=== PATIENT | female | born 1955 | race Caucasian/White ===

== ENCOUNTER 2019-06-28 13:30 | Inpatient (IN) ==
[2019-06-28 14:23] LABS: Basophils % 0.1 % (0.0-0.8); Eosinophils % 0.1 % (0.00-10.9); Hematocrit 33.6 VOL% (35.7-47.0); Hemoglobin 10.9 GM/DL (12.0-16.0); Immature Granulocytes % 0.3 %; Immature Granulocytes Absolute 0.02 #; Lymphocytes # 1.1 10*3/uL (1.4-4.0); Lymphocytes % 15.6 % (21.3-54.2); Mean Corpuscular HGB Conc 32.4 GM/DL (32-36); Mean Corpuscular Volume 92.8 FL (87-102); Mean Platelet Volume 9.6 FL (9.6-12.0); Monocytes % 3.8 % (1.7-12.7); Neutrophils % 80.1 % (38.7-73.9); Platelet Count 282 T/CUMM (130-400); Red Blood Count 3.62 MC/CUMM (3.8-5.5); Red Cell Distribution Width 13.9 % (9.3-17.3); White Blood Count 7.1 T/CUMM (4-12)
[2019-06-28 14:33] LABS: INR 0.9; PT Patient Result 10.2 SECS (9.6-12.2); Partial Thromboplastin Time < 21.0 SECS (20.8-36.0)
[2019-06-28 14:37] LABS: Alanine Aminotransferase 26 U/L (13-56); Albumin 3.4 G/DL (3.4-5.0); Alkaline Phosphatase 56 U/L (45-117); Aspartate Amino Transferase 31 U/L (0-37); Bilirubin,Total < 0.39 MG/DL (0.2-1.0); Blood Urea Nitrogen 7 MG/DL (7-18); Calcium 8.2 MG/DL (8.5-10.1); Estimated Glom Filtration Rate 107 ML/MIN; Glucose 105 MG/DL (74-106); Osmolality,Calculated 276.4 MOS/KG (273-304); Total Protein 6.9 G/DL (6.4-8.3)
[2019-06-28] MEDS ORDERED: LABETALOL 20 MG/4 ML SYRINGE IV PRN (15:18)
[2019-06-28] MEDS ORDERED: ASPIRIN 300 MG SUPP RECTAL STA (15:18)
[2019-06-28 15:55] LABS: Apearance,Urine CLEAR (Clear); Bilirubin,Urine Negative (Negative); Blood, Urine Negative (Negative); Glucose,Urine (UA) Negative (Negative); Ketones,Urine Negative (Negative); Mucus,Urine Occasional /LPF (Occasional); Nitrite,Urine Negative (Negative); Protein,Urine Negative; RBC,Urine <1 /HPF (0-4); Squamous Epithelial Cell,Urine Occasional /HPF (0-10); Transitional Epi Cells,Urine Occasional /HPF (<1); Urine Color Yellow (Yellow); Urine Specific Gravity 1.015 (1.001-1.035); Urine Urobilinogen < 2.0 EU/DL (0.2-1.0); WBC,Urine 1 /HPF (0-6)
[2019-06-28 16:09] LABS: Risk Ratio 4.47; Thyroid Stimulating Hormone 1.24 uIU/ml (0.358-3.74); VLDL CHOLESTEROL 14.8 MG/DL
[2019-06-28 17:10] LABS: Barbiturates Screen,Urine Negative (Negative); Benzodiazepines Screen,Urine Positive (Negative); Cannabinoid Screen,Urine Negative (Negative); Opiate Screen,Urine Negative (Negative); Phencyclidine Screen,Urine Negative (Negative)
[2019-06-28] MEDS: SODIUM CHLORIDE 0.9% 1,000 ML IV SCH (20:18)
[2019-06-28] MEDS: ENOXAPARIN 40 MG/0.4 ML SYRINGE SUBCUT SCH (20:46)
[2019-06-28] MEDS: ATORVASTATIN 40 MG TABLET PO SCH (20:50)
[2019-06-29] MEDS: ASPIRIN 325 MG TABLET PO SCH (09:38)
[2019-06-29] MEDS ORDERED: ACETAMINOPHEN 650 MG SUPP RECTAL PRN (11:05)
[2019-06-29] MEDS ORDERED: ACETAMINOPHEN 325 MG TABLET ONE (12:07)
[2019-06-29] MEDS: ACETAMINOPHEN 325 MG TABLET PO PRN ×2 (12:13→18:40)
[2019-06-29] MEDS: SODIUM CHLORIDE 0.9% 1,000 ML IV SCH ×2 (12:14→23:47)
[2019-06-29] MEDS: ATORVASTATIN 40 MG TABLET PO SCH (20:24)
[2019-06-29] MEDS: ENOXAPARIN 40 MG/0.4 ML SYRINGE SUBCUT SCH (20:24)
[2019-06-30] MEDS: ASPIRIN 325 MG TABLET PO SCH (09:08)
[2019-06-30] MEDS ORDERED: DIAZEPAM 5 MG TABLET PO PRN (12:00)
[2019-06-30] MEDS: METOPROLOL TARTRATE 25 MG TABLET PO SCH (12:16)
[2019-06-30] MEDS: SODIUM CHLORIDE 0.9% 1,000 ML IV SCH (13:08)
[2019-06-30] MEDS: ATORVASTATIN 40 MG TABLET PO SCH (21:14)
[2019-06-30] MEDS: ENOXAPARIN 40 MG/0.4 ML SYRINGE SUBCUT SCH (21:14)
[2019-07-01] MEDS: ASPIRIN 325 MG TABLET PO SCH (08:48)
[2019-07-01] MEDS: ESCITALOPRAM 10 MG TABLET PO SCH (08:48)
[2019-07-01] MEDS: PANTOPRAZOLE 40 MG TABLET PO SCH (08:49)
[2019-07-01] MEDS: METOPROLOL TARTRATE 25 MG TABLET PO SCH (08:49)
[2019-07-01] MEDS ORDERED: MAGNESIUM HYDROXIDE SUSP 30 ML UDCUP PO PRN (09:04)
[2019-07-01] MEDS: amLODIPine 5 MG TABLET PO SCH (14:07)
[2019-07-01] MEDS: ATORVASTATIN 40 MG TABLET PO SCH (21:26)
[2019-07-01] MEDS: ENOXAPARIN 40 MG/0.4 ML SYRINGE SUBCUT SCH (21:26)
[2019-07-01] MEDS: DOCUSATE SODIUM 100 MG CAPSULE PO SCH (21:26)
[2019-07-02] MEDS: PANTOPRAZOLE 40 MG TABLET PO SCH (08:48)
[2019-07-02] MEDS: ESCITALOPRAM 10 MG TABLET PO SCH (08:48)
[2019-07-02] MEDS: ASPIRIN 325 MG TABLET PO SCH (08:48)
[2019-07-02] MEDS: METOPROLOL TARTRATE 25 MG TABLET PO SCH (08:48)
[2019-07-02] MEDS: amLODIPine 5 MG TABLET PO SCH (08:48)
[2019-07-02] MEDS: DOCUSATE SODIUM 100 MG CAPSULE PO SCH (08:48)
[2019-07-02 12:06] VITALS: BP 149/88
== END 2019-07-02 11:50 | DRG 65 ==
LOC: EDUNIT# → EDBD → N.ED 13:30 → N.EDINP 15:14 → SUATTDRO 15:14 → N.EDINP 16:58 → N.4E 17:22
PROVIDERS: ADMIT Internal Medicine; ATTEND Internal Medicine Geriatric Medicine

== ENCOUNTER 2021-02-21 11:18 | Observation (INO) ==
[2021-02-21 12:32] LABS: Basophils % 0.3 % (0.0-0.8); Eosinophils # 0.2 10*3/uL (0.0-0.87); Eosinophils % 3.2 % (0.00-10.9); Hematocrit 22.4 VOL% (35.7-47.0); Hemoglobin 6.5 GM/DL (12.0-16.0); Immature Granulocytes % 0.3 %; Immature Granulocytes Absolute 0.02 #; Lymphocytes # 2.2 10*3/uL (1.4-4.0); Lymphocytes % 33.6 % (21.3-54.2); Mean Corpuscular Volume 76.5 FL (87-102); Mean Platelet Volume 10.5 FL (9.6-12.0); Monocytes % 7.8 % (1.7-12.7); NRBC # 0.02 10*3/uL; Neutrophils % 54.8 % (38.7-73.9); Platelet Count 279 T/CUMM (130-400); Red Blood Count 2.93 MC/CUMM (3.8-5.5); White Blood Count 6.6 T/CUMM (4-12)
[2021-02-21 12:39] LABS: Partial Thromboplastin Time 21.7 SECS (23.9-33.8)
[2021-02-21 12:53] LABS: Alanine Aminotransferase 15 U/L (13-56); Albumin 3.5 G/DL (3.4-5.0); Alkaline Phosphatase 63 U/L (45-117); Aspartate Amino Transferase 17 U/L (0-37); Blood Urea Nitrogen 10 MG/DL (7-18); Calcium 8.2 MG/DL (8.5-10.1); Carbon Dioxide 24 MMOL/L (21-32); Estimated Glom Filtration Rate 76 ML/MIN; Glucose 93 MG/DL (74-106); Osmolality,Calculated 281.1 MOS/KG (273-304); Potassium 4.2 MMOL/L (3.5-5.1); Sodium 142 MMOL/L (136-145); Total Protein 7.1 G/DL (6.4-8.2)
[2021-02-21] MEDS ORDERED: ONDANSETRON 4 MG/2 ML VIAL IV PRN (12:56)
[2021-02-21 12:59] LABS: Hypochromasia 3+; Microcytosis 2+; Ovalocytes Few; Platelet Estimate Normal; Polychromasia Slight; Stomatocytes Few
[2021-02-21] MEDS ORDERED: ENOXAPARIN 40 MG/0.4 ML SYRINGE SUBCUT SCH (13:00)
[2021-02-21 13:06] LABS: Folate > 24.00 NG/ML (5.38-24.0); Vitamin B12 653 PG/ML (211-911)
[2021-02-21 13:16] LABS: % Iron Saturation 3.5 % (18-50); Ferritin 8.7 ng/ml (8-252)
[2021-02-21] MEDS: PANTOPRAZOLE 40 MG TABLET PO SCH (14:27)
[2021-02-21] MEDS ORDERED: SODIUM CHLORIDE 0.9% 1,000 ML IV PRN (14:38)
[2021-02-21] MEDS ORDERED: ACETAMINOPHEN 500 MG TABLET PO PRN (14:39)
[2021-02-21] MEDS ORDERED: amLODIPine 5 MG TABLET PO SCH (15:00)
[2021-02-21] MEDS ORDERED: DIAZEPAM 5 MG TABLET PO STA (15:32)
[2021-02-21 16:21] LABS: Barbiturates Screen,Urine Negative (Negative); Benzodiazepines Screen,Urine Negative (Negative); Cannabinoid Screen,Urine Negative (Negative); Opiate Screen,Urine Negative (Negative); Phencyclidine Screen,Urine Negative (Negative)
[2021-02-21 21:04] LABS: Bilirubin,Urine Negative (Negative); Blood, Urine Negative (Negative); Glucose,Urine (UA) Negative (Negative); Hyaline Casts,Urine 4 /LPF (0-3); Ketones,Urine Negative (Negative); Mucus,Urine Many /LPF (Occasional); Nitrite,Urine Negative (Negative); Protein,Urine Negative; RBC,Urine 1 /HPF (0-4); Squamous Epithelial Cell,Urine Occasional /HPF (0-10); Urine Appearance CLEAR (Clear); Urine Color Yellow (Yellow); Urine Specific Gravity 1.021 (1.001-1.035); Urine Urobilinogen < 2.0 EU/DL (0.2-1.0)
[2021-02-22 04:30] LABS: Basophils % 0.4 % (0.0-0.8); Eosinophils # 0.2 10*3/uL (0.0-0.87); Eosinophils % 4.2 % (0.00-10.9); Hematocrit 24.4 VOL% (35.7-47.0); Immature Granulocytes % 0.6 %; Immature Granulocytes Absolute 0.03 #; Lymphocytes # 2.3 10*3/uL (1.4-4.0); Lymphocytes % 43.5 % (21.3-54.2); Mean Corpuscular HGB Conc 28.7 GM/DL (32-36); Mean Platelet Volume 10.3 FL (9.6-12.0); Monocytes % 8.2 % (1.7-12.7); NRBC # 0.02 10*3/uL; Neutrophils % 43.1 % (38.7-73.9); Platelet Count 238 T/CUMM (130-400); Red Blood Count 3.09 MC/CUMM (3.8-5.5); Red Cell Distribution Width 17.8 % (9.3-17.3); White Blood Count 5.2 T/CUMM (4-12)
[2021-02-22 04:57] LABS: Hypochromasia 2+; Microcytosis 1+
[2021-02-22 04:58] LABS: Ovalocytes Slight; Platelet Estimate Adequate
[2021-02-22 05:14] LABS: Bilirubin,Total 0.6 MG/DL (0.20-1.00); Calcium 7.7 MG/DL (8.5-10.1); Potassium 3.9 MMOL/L (3.5-5.1); Total Protein 6.3 G/DL (6.4-8.2)
[2021-02-22] MEDS ORDERED: LACTATED RINGERS 1,000 ML IV SCH (08:00)
[2021-02-22] MEDS ORDERED: ASPIRIN 325 MG TABLET PO SCH (09:00)
[2021-02-22 09:24] LABS: Hematocrit 26.9 VOL% (35.7-47.0)
[2021-02-22] MEDS ORDERED: propofoL 200 MG/20 ML VIAL IV ONE (11:40)
[2021-02-22] MEDS ORDERED: LIDOCAINE 2% 5 ML VIAL ONE (11:40)
[2021-02-22] MEDS: SOFOSBUVIR VELPATASVIR PO SCH (13:26)
[2021-02-22] MEDS: METOPROLOL TARTRATE 25 MG TABLET PO SCH (13:26)
[2021-02-22] MEDS: PANTOPRAZOLE 40 MG TABLET PO SCH (13:26)
[2021-02-22 18:17] LABS: Hematocrit 27.8 VOL% (35.7-47.0); Hemoglobin 8.1 GM/DL (12.0-16.0)
[2021-02-23 06:51] LABS: Calcium 8.3 MG/DL (8.5-10.1); Osmolality,Calculated 279.3 MOS/KG (273-304); Potassium 3.7 MMOL/L (3.5-5.1)
[2021-02-23 07:04] LABS: Basophils % 0.2 % (0.0-0.8); Eosinophils # 0.2 10*3/uL (0.0-0.87); Hemoglobin 8.5 GM/DL (12.0-16.0); Immature Granulocytes % 0.7 %; Immature Granulocytes Absolute 0.04 #; Lymphocytes # 1.5 10*3/uL (1.4-4.0); Mean Corpuscular HGB Conc 30.4 GM/DL (32-36); Mean Corpuscular Volume 77.3 FL (87-102); Mean Platelet Volume 9.8 FL (9.6-12.0); Monocytes % 8.1 % (1.7-12.7); NRBC # 0.02 10*3/uL; Platelet Count 253 T/CUMM (130-400); Red Blood Count 3.62 MC/CUMM (3.8-5.5); Red Cell Distribution Width 17.4 % (9.3-17.3); White Blood Count 5.9 T/CUMM (4-12)
[2021-02-23 08:48] VITALS: BP 112/56
[2021-02-23] MEDS ORDERED: FERROUS SULFATE 325 MG TABLET PO SCH (09:00)
[2021-02-23] MEDS ORDERED: ASPIRIN 325 MG TABLET PO SCH (09:00)
[2021-02-23] MEDS: METOPROLOL TARTRATE 25 MG TABLET PO SCH (09:22)
[2021-02-23] MEDS: PANTOPRAZOLE 40 MG TABLET PO SCH (09:23)
[2021-02-23] MEDS: SOFOSBUVIR VELPATASVIR PO SCH (09:23)
== END 2021-02-23 10:07 | disposition home or self-care (01) ==
LOC: N.EDINP 11:18 → N.ED 11:18 → SUATTDRO 12:56 → N.4E 17:39
PROVIDERS: ADMIT Internal Medicine; ATTEND Internal Medicine